=== PATIENT | male | born 1975 | race African-American/Black ===

== ENCOUNTER 2020-07-26 19:19 | Emergency (ER) | payer OTHER ==
[~2020-07-26] VITALS: Ht 167.6 cm; Wt 77.1 kg
== END 2020-07-26 21:29 | disposition home or self-care (01) ==
LOC: ER 19:19
DX: S01.122D Laceration with foreign body of left eyelid and periocular area, subsequent encounter (principal); Y04.2XXD Assault by strike against or bumped into by another person, subsequent encounter

== ENCOUNTER → 2020-07-26 | Emergency (ER) | payer OTHER ==
[~2020-07-26] VITALS: Ht 167.6 cm; Wt 72.6 kg
[~2020-07-26] MED LIST: ZESTRIL40 M1
== END | disposition home or self-care (01) ==
LOC: ER 12:06
DX: S01.122A Laceration with foreign body of left eyelid and periocular area, initial encounter (principal); S01.82XA Laceration with foreign body of other part of head, initial encounter; Y04.2XXA Assault by strike against or bumped into by another person, initial encounter; Y93.89 Activity, other specified; Y92.413 State road as the place of occurrence of the external cause; Y99.8 Other external cause status